=== PATIENT | male | born 1955 | race Caucasian/White ===

== ENCOUNTER 2021-11-13 18:06 | Inpatient (IN) | payer MEDICARE, OTHER ==
[~2021-11-13] VITALS: Ht 170.2 cm; Wt 61.7 kg
--- NOTE | 2021-11-13 18:35 | NUR ---
BIBRA 40 FOR LOW GRADE FEVER 99.7F X1 DAY. VACCINATED. OXYGEN SATURATION IN ROOM AIR 94%. RESPIRATION REGULAR AND UNLABORED. ATTACHED TO THE MONITOR. WILL CONTINUE TO MONITOR THE PATIENT
--- NOTE | 2021-11-13 18:48 | NUR ---
IV LINE IS ESTABLISHED, BLOOD SPECIMEN COLLECTED AND SENT TO THE LAB. THE LINE IS SALINE LOCKED.
--- NOTE | 2021-11-13 18:52 | NUR ---
COVID ANTIGEN SWAB DONE AND SENT TO THE LAB
[2021-11-13] MEDS ORDERED: IV NS 0.9% 1,000 ML BAG IV ONE (19:00)
[2021-11-13] MEDS ORDERED: FAMO40TA7 GT (19:06)
[2021-11-13] MEDS ORDERED: DOCU-141 GT (19:06)
[2021-11-13] MEDS ORDERED: ASCO-352 GT (19:06)
[2021-11-13] MEDS ORDERED: IPRA0.2S9 IH (19:06)
[2021-11-13] MEDS ORDERED: CRAN500T3 GT (19:06)
[2021-11-13] MEDS ORDERED: [UNRECOGNIZED DRUG - CODE] NEB (19:06)
[2021-11-13] MEDS ORDERED: ALBU2.5V38 IH (19:06)
[2021-11-13] MEDS ORDERED: POLY17PO4 GT (19:06)
[2021-11-13] MEDS ORDERED: NUTR250L62 GT (19:06)
[2021-11-13] MEDS ORDERED: ATOR10TA GT (19:06)
[2021-11-13] MEDS ORDERED: CALC1TAB30 GT (19:06)
[2021-11-13] MEDS ORDERED: APIX5TAB GT (19:06)
[2021-11-13] MEDS ORDERED: LEVO100T9 GT (19:06)
[2021-11-13] MEDS ORDERED: OMEP20TA5 GT (19:06)
--- NOTE | 2021-11-13 19:11 | NUR ---
URINE SENT TO LAB
[2021-11-13] MEDS ORDERED: CARB-174 OT (19:16)
[2021-11-13] MEDS ORDERED: NYST15CR TP (19:16)
[2021-11-13] MEDS ORDERED: ONDA4TAB5 GT (19:16)
[2021-11-13] MEDS ORDERED: ACET-868 GT (19:16)
[2021-11-13] MEDS ORDERED: MAGN400O6 GT (19:16)
[2021-11-13] MEDS ORDERED: NA P133E RC (19:16)
[2021-11-13] MEDS ORDERED: GUAI100S11 GT (19:16)
[2021-11-13] MEDS ORDERED: LORA10TA7 GT (19:16)
[2021-11-13] MEDS ORDERED: BISA10SU11 RC (19:16)
[2021-11-13] MEDS ORDERED: TRIA15OI2 TP (19:16)
[2021-11-13] MEDS ORDERED: SUCR1TAB TD (19:16)
[2021-11-13] MEDS ORDERED: POLY15DR40 EACHEYE (19:16)
[2021-11-13 19:19] LABS: CALCIUM, SERUM 8.4 mg/dL (8.5-10.1); CARBON DIOXIDE 28 mmol/L (21-32); CHLORIDE 99 mmol/L (98-107); CREATININE 1.5 mg/dL (0.6-1.3); GLUCOSE 107 mg/dL (74-106); POTASSIUM 3.9 mmol/L (3.5-5.1); SODIUM SERUM 134 mmol/L (136-145); UREA NITROGEN, BLOOD 19 mg/dL (7-18)
[2021-11-13 19:26] LABS: ALANINE AMINOTRANSFERASE 31 U/L (12-78); ALBUMIN 2.8 g/dL (3.4-5.0); ALKALINE PHOSPHATASE 86 U/L (46-116); ASPARTATE AMINOTRANSFERASE 26 U/L (15-37); BILIRUBIN,DIRECT 0.2 mg/dL (0.0-0.2); BILIRUBIN,TOTAL 0.4 mg/dL (0.2-1.0); TOTAL PROTEIN, SERUM 7.2 g/dL (6.4-8.2)
[2021-11-13 19:51] LABS: EOSINOPHILS % (AUTO) 0.7 % (0.0-6.0); HEMATOCRIT 41 % (39-51); LYMPHOCYTES # (AUTO) 0.4 K/uL (0.8-4.8); LYMPHOCYTES % (AUTO) 10.1 % (20.0-44.0); MEAN CORPUSCULAR HGB CONC 34 g/dl (31.0-36.0); MEAN CORPUSCULAR VOLUME 102 fL (80-96); MONOCYTES # (AUTO) 0.7 K/uL (0.1-1.30); MONOCYTES % (AUTO) 17.2 % (2.0-12.0); NEUTROPHILS # (AUTO) 3.1 K/uL (1.8-8.9); PLATELET COUNT (AUTO) 192 K/uL (150-450); RED BLOOD CELL COUNT(AUTO) 4.04 MIL/uL (4.5-6.0); WHITE BLOOD COUNT (AUTO) 4.3 K/uL (4.3-11.0)
--- NOTE | 2021-11-13 20:42 | NUR ---
CALL FROM LAB. RAPID COVID POSITIVE.
[2021-11-13] MEDS ORDERED: CEFTRIAXONE 1GM BAG (ER ONLY) 1 GM/50 ML PIGGYBACK IV ONE (21:00)
[2021-11-13] MEDS ORDERED: AZITHROMYCIN 500 MG in IV D5W 250 ML IV ONE (21:00)
[2021-11-13] MEDS ORDERED: AZITHROMYCIN 500 MG VIAL ONE (21:23)
[2021-11-13] MEDS ORDERED: CEFTRIAXONE 1GM BAG (ER ONLY) 50 ML IV ONE (21:23)
[2021-11-13 23:25] LABS: BILIRUBIN,URINE NEGATIVE (NEGATIVE); COLOR,URINE YELLOW (YELLOW); LEUKOCYTE ESTERASE ,URINE LARGE (NEGATIVE); NITRITE, URINE POSITIVE (NEGATIVE); PROTEIN,URINE NEGATIVE (NEGATIVE); UGLUCOSE NEGATIVE (NEGATIVE); UROBILINOGEN,URINE 0.2 EU/dL (0.2)
[2021-11-13 23:27] LABS: BACTERIA,URINE Many /HPF (None Seen); SQUAMOUS EPITHELIAL CELL,UR Few /HPF (None Seen); WBC,URINE 21-50 /HPF (0-3)
[2021-11-13] MEDS ORDERED: ONDANSETRON HCL/PF 4 MG/2 ML VIAL IVP PRN (23:30)
[2021-11-13] MEDS ORDERED: LEVOFLOXACIN 500 MG /D5W 100ML 500 MG in PREMIX 1 EA IV ONE (23:30)
[2021-11-13] MEDS ORDERED: BISACODYL SUPP (10 MG) 10 MG/SUPP.RECT SUPP.RECT RC PRN (23:30)
[2021-11-13] MEDS: ALBUTEROL FS 2.5 MG/3 ML VIAL.NEB IH SCH (23:30)
[2021-11-13] MEDS ORDERED: IPRATROPIUM NEB FS 0.5 MG/2.5 ML AMPUL.NEB IH SCH (23:30)
[2021-11-13] MEDS ORDERED: Z GUARD REMEDY 4 OZ OINT TP PRN (23:30)
[2021-11-13] MEDS: POLYVINYL ALCOHOL 15 ML BOTTLE EACHEYE SCH (23:30)
[2021-11-13] MEDS ORDERED: ACETAMINOPHEN 325 MG TABLET PO PRN (23:30)
[2021-11-13] MEDS ORDERED: TRIAMCINOLONE OINT 0.1% 15 GM TUBE TP PRN (23:30)
[2021-11-13] MEDS ORDERED: FAMOTIDINE 40 MG TABLET GT SCH (23:30)
[2021-11-13 23:48] LABS: THYROID STIMULATING HORMONE 0.242 uIU/mL (0.358-3.74)
[2021-11-13 23:52] LABS: C-REACTIVE PROTEIN 5.7 mg/dL (0.0-0.9)
[2021-11-13] MEDS ORDERED: LEVOFLOXACIN 500 MG /D5W 100ML 100 ML IV ONE (23:55)
[2021-11-13] MEDS ORDERED: APIXABAN 5 MG TABLET ONE (23:55)
[2021-11-13] MEDS ORDERED: SUCRALFATE 1 G TABLET ONE (23:56)
[2021-11-13] MEDS ORDERED: FAMOTIDINE (20 MG) 20 MG TABLET ONE (23:56)
[2021-11-14] MEDS: SUCRALFATE 1 G TABLET GT SCH ×3 (00:32→17:02)
[2021-11-14] MEDS: APIXABAN 5 MG TABLET GT SCH ×3 (00:32→21:30)
[2021-11-14] MEDS ORDERED: IPRATROPIUM NEB FS 0.5 MG/2.5 ML AMPUL.NEB ONE (00:41)
[2021-11-14] MEDS ORDERED: ALBUTEROL FS 2.5 MG/3 ML VIAL.NEB ONE (00:41)
--- NOTE | 2021-11-14 01:21 | NUR ---
PT TOLERATING R/A AT 95%. GT PATENT AND INTACT. RFA #18G PATENT AND INTACT. PT SLEEPING IN BED. ENDORSED FREDDY TO ANGELITO VIRK.
[2021-11-14 05:09] LABS: BASOPHILS % (AUTO) 0.6 % (0.0-2.0); EOSINOPHILS % (AUTO) 0.2 % (0.0-6.0); HEMATOCRIT 46 % (39-51); HEMOGLOBIN 15.5 g/dL (13.5-17.5); LYMPHOCYTES # (AUTO) 0.6 K/uL (0.8-4.8); LYMPHOCYTES % (AUTO) 9.3 % (20.0-44.0); MEAN CORPUSCULAR HGB CONC 34 g/dl (31.0-36.0); MEAN CORPUSCULAR VOLUME 103 fL (80-96); MONOCYTES # (AUTO) 0.9 K/uL (0.1-1.30); NEUTROPHILS # (AUTO) 4.6 K/uL (1.8-8.9); NEUTROPHILS % (AUTO) 74.9 % (43.0-81.0); PLATELET COUNT (AUTO) 185 K/uL (150-450); RED BLOOD CELL COUNT(AUTO) 4.45 MIL/uL (4.5-6.0); WHITE BLOOD COUNT (AUTO) 6.1 K/uL (4.3-11.0)
[2021-11-14 05:40] LABS: CALCIUM, SERUM 8.8 mg/dL (8.5-10.1); CREATININE 1.4 mg/dL (0.6-1.3); MAGNESIUM 2.4 mg/dL (1.8-2.4); PHOSPHORUS 2.3 mg/dL (2.5-4.9); POTASSIUM 3.8 mmol/L (3.5-5.1)
[2021-11-14] MEDS: ALBUTEROL FS 2.5 MG/3 ML VIAL.NEB IH SCH (07:35)
[2021-11-14] MEDS: LEVOTHYROXINE SODIUM 100 MCG TABLET GT SCH (08:00)
[2021-11-14] MEDS: IV NS 0.9% 1,000 ML IV PRN ×2 (08:00→12:47)
[2021-11-14] MEDS ORDERED: LEVOTHYROXINE SODIUM 100 MCG TABLET ONE (08:02)
--- NOTE | 2021-11-14 08:02 | NUR ---
THE PATIENT IS RECEIVED IN ER BED #8. ATTACHED TO THE MONITOR. RESPIRATION REGULAR AND UNLABORED. WILL CONTINUE TO MONITOR THE PATIENT.
[2021-11-14] MEDS ORDERED: SUCRALFATE 1 G TABLET ONE (08:04)
[2021-11-14] MEDS ORDERED: APIXABAN 5 MG TABLET ONE (08:04)
[2021-11-14] MEDS ORDERED: ASCORBIC ACID 500 MG TABLET ONE (08:04)
[2021-11-14] MEDS ORDERED: DOCUSATE SODIUM LIQ 100 MG/10 ML UDC ONE (08:04)
[2021-11-14] MEDS: ASCORBIC ACID 500 MG TABLET GT SCH (08:48)
[2021-11-14] MEDS: DOCUSATE SODIUM 100 MG CAPSULE PO SCH ×2 (08:48→21:31)
--- NOTE | 2021-11-14 09:02 | NUR ---
RT NOTE Patient is covid positive. Breathing tx (HHN) not given at this time. Per RN, pharmacy will change medication to MDI.
[2021-11-14] MEDS: CALCIUM CARB 250MG /VITAMIN D 1 UDTAB PO SCH (09:11)
[2021-11-14] MEDS: NYSTATIN CREAM 15 GM TUBE TP SCH ×2 (09:11→17:02)
[2021-11-14] MEDS: POLYVINYL ALCOHOL 15 ML BOTTLE EACHEYE SCH ×2 (09:14→21:26)
[2021-11-14] MEDS: IPRATROPIUM BROMIDE 14 GM INHALER (or 12.9 GM) IH SCH ×2 (09:15→15:30)
--- NOTE | 2021-11-14 11:17 | NUR ---
GOT BED 119-1
[2021-11-14] MEDS ORDERED: NEUTRA PHOS 1 POWD.PACKET PO ONE (11:30)
--- NOTE | 2021-11-14 11:31 | NUR ---
REPORT GIVEN TO NURSE PRATT FOR FREDDY
--- NOTE | 2021-11-14 11:52 | NUR ---
THE PATIENT IS TRANSFERED TO ASSIGNED ROOM IN STABLE CONDITON AND PER ACLS
--- NOTE | 2021-11-14 11:55 | NUR ---
RN NOTES; PT ARRIVED FROM ER VIA GURNEY. PT A/OX1, NON VERBAL. FFA#18 NOTED, FLUSHED, WITH NO SIGNS ON INFILTRATION. WILL CONTINUE FULL ASSESSMENT AND MONITOR.
[2021-11-14 12:00] VITALS: BP 121/68
[2021-11-14] MEDS ORDERED: JEVITY 1.2 CAL 1,000 ML BOTTLE GT PRN (15:30)
[2021-11-14] MEDS: ALBUTEROL SULFATE 8 GM HFA.AER.AD IH SCH (15:30)
[2021-11-14 16:00] VITALS: BP 125/75
[2021-11-14] MEDS: POLYETHYLENE GLYCOL 3350 17 GM POWD.PACK GT SCH (17:02)
--- NOTE | 2021-11-14 18:43 | NUR ---
RN CLOSING NOTES; PT IN BED RESTING. PT A/OX1, NON VERBAL. SKIN IS INTACT. PT HAS GTUBE, AWAITING FOR FEEDING. JEVITY 1.2 GOAL IS 60ML/HR. START AT 20ML/HR. RFA#18 FLUSHED, PATENT, AND RUNNING NS@75ML/HR. PT KEPT CLEAN, DRY, AND COMFORTABLE. SAFETY MEASURES RENDERED, BED IN LOWEST POS. LOCKED, SIDE RAILSX2, WITH CALL LIGHT WITHIN REACH. NO SIGNIFICANT CHANGES TO PT HEALTH STATUS ON SHIFT. WILL ENDORSE TO GRAVITY METER OPERATOR RN. PT IN STABLE CONDITION.
--- NOTE | 2021-11-14 19:20 | NUR ---
RN OPENING NOTES RECEIVED PATIENT ON BED AWAKE. PATIENT IS ON ROOM AIR , NO SOB NOTED, NO S/S OF DISTRESS NOTED. PATIENT WITH RIGHT FORE ARM PERIPHERAL LINE #20. WITH GTUBE FEEDING JEVITY 1.2 @ 60 ML/HR, HOB KEPT ELEVATED, INPLACED, INTACT AND INFUSING WELL, NO RESIDUAL NOTED UPON ASPIRATION. ALL SAFETY MEASURE IN PLACE. BED ON LOWEST POSITION, LOCKED BED ALARM ARMED. CALL LIGHT WITHIN REACH. WILL CONTINUE TO MONITOR
[2021-11-14 20:00] VITALS: BP 153/72
[2021-11-14] MEDS: JEVITY 1.2 CAL 1,000 ML BOTTLE GT SCH (20:07)
[2021-11-14] MEDS: FAMOTIDINE (20 MG) 20 MG TABLET GT SCH (21:27)
[2021-11-14] MEDS: LEVOFLOXACIN 250 MG /D5W 50 ML 250 MG in PREMIX 1 EA IV SCH (23:09)
[2021-11-15] VITALS: BP 138/81
[2021-11-15 04:00] VITALS: BP 115/74
[2021-11-15] MEDS: IV NS 0.9% 1,000 ML IV PRN ×2 (06:01→19:22)
--- NOTE | 2021-11-15 07:25 | NUR ---
RN CLOSING NOTES NO SIGNIFICANT CHANGES THROUGH OUT THE SHIFT. PATIENT IS ON ROOM AIR , NO SOB NOTED, NO S/S OF DISTRESS NOTED. PATIENT WITH RIGHT FORE ARM PERIPHERAL LINE #20. WITH GTUBE FEEDING JEVITY 1.2 @ 60 ML/HR, HOB KEPT ELEVATED, INPLACED, INTACT AND INFUSING WELL, NO RESIDUAL NOTED UPON ASPIRATION. ALL DUE MEDS GIVEN ORDERED. ALL SAFETY MEASURE IN PLACE. BED ON LOWEST POSITION, LOCKED BED ALARM ARMED. CALL LIGHT WITHIN REACH. WILL CONTINUE TO MONITOR
[2021-11-15 07:31] LABS: CALCIUM, SERUM 7.9 mg/dL (8.5-10.1); CREATININE 1.2 mg/dL (0.6-1.3); POTASSIUM 3.7 mmol/L (3.5-5.1)
[2021-11-15 08:00] VITALS: BP 133/76
--- NOTE | 2021-11-15 08:00 | NUR ---
RN NOTE RECEIVED PT ASLEEP IN BED, RESPONSIVE TO STIMULI. NO COMPLAINTS OF PAIN AND DISCOMFORT. RFA G18 MED LOCK IN PLACE, WITH IVF NS RUNNING @ 75CC/HR. GT FEEDING JEVITY 1.2 RUNNING @40CC/HR. ASPIRATION PREC FOLLOWED. WILL CONTINUE TO MONITOR.
[2021-11-15 08:13] LABS: BASOPHILS % (AUTO) 1.5 % (0.0-2.0); EOSINOPHILS % (AUTO) 1.1 % (0.0-6.0); HEMATOCRIT 41 % (39-51); HEMOGLOBIN 13.9 g/dL (13.5-17.5); LYMPHOCYTES # (AUTO) 0.5 K/uL (0.8-4.8); LYMPHOCYTES % (AUTO) 26.1 % (20.0-44.0); MEAN CORPUSCULAR HGB CONC 34 g/dl (31.0-36.0); MEAN CORPUSCULAR VOLUME 101 fL (80-96); MONOCYTES # (AUTO) 0.5 K/uL (0.1-1.30); MONOCYTES % (AUTO) 25.3 % (2.0-12.0); NEUTROPHILS # (AUTO) 0.9 K/uL (1.8-8.9); PLATELET COUNT (AUTO) 177 K/uL (150-450); RED BLOOD CELL COUNT(AUTO) 4.05 MIL/uL (4.5-6.0)
[2021-11-15 08:36] LABS: WHITE BLOOD COUNT (AUTO) 1.9 K/uL (4.3-11.0)
[2021-11-15] MEDS ORDERED: CARBAMIDE PEROXIDE OTIC 15 ML BOTTLE OT SCH (09:00)
[2021-11-15] MEDS: LEVOTHYROXINE SODIUM 100 MCG TABLET GT SCH (09:07)
[2021-11-15] MEDS: SUCRALFATE 1 G TABLET GT SCH ×2 (09:07→17:14)
[2021-11-15] MEDS: ASCORBIC ACID 500 MG TABLET GT SCH (09:07)
[2021-11-15] MEDS: CALCIUM CARB 250MG /VITAMIN D 1 UDTAB PO SCH (09:07)
[2021-11-15] MEDS: DOCUSATE SODIUM 100 MG CAPSULE PO SCH ×2 (09:07→21:48)
[2021-11-15] MEDS: ATORVASTATIN 10 MG TABLET GT SCH (09:08)
[2021-11-15] MEDS: APIXABAN 5 MG TABLET GT SCH ×2 (09:11→21:50)
[2021-11-15] MEDS: POLYVINYL ALCOHOL 15 ML BOTTLE EACHEYE SCH ×2 (09:30→22:12)
[2021-11-15 12:00] VITALS: BP 115/79
[2021-11-15] MEDS: NYSTATIN CREAM 15 GM TUBE TP SCH ×2 (12:43→17:13)
[2021-11-15] MEDS: ALBUTEROL SULFATE 8 GM HFA.AER.AD IH SCH ×4 (12:44→22:13)
[2021-11-15] MEDS: IPRATROPIUM BROMIDE 14 GM INHALER (or 12.9 GM) IH SCH ×4 (12:44→22:13)
[2021-11-15] MEDS ORDERED: K PHOS NEUTRAL 250 MG TABLET PO ONE (15:30)
[2021-11-15 16:00] VITALS: BP 125/62
[2021-11-15] MEDS: POLYETHYLENE GLYCOL 3350 17 GM POWD.PACK GT SCH (17:14)
--- NOTE | 2021-11-15 19:10 | NUR ---
RN NOTES RECEIVED REPORT FROM MORNING RN. PATIENT A/O X1 NON VERBAL. NO SIGN OF DISTRESS OR DISCOMFORT AT THIS TIME ON ROOM AIR SATING 95% TOLERATING WELL. WITH GT PATENT CONNECTED TO CONTINUOS FEEDING @ 600 CC/HR TOLERATING WELL. WITH IV ACCESS AT RFA #18 FLUSHES WELL WITH CONTINUOS IVF NS @75CC/HR. PATIENT ON ISOLATION FOR COVID 19 POSITIVE. ALL SAFETY PRECAUTION IN PLACE AT ALL TIMES. HOB ELEVATED, CALL LIGHT WITHIN REACH SIDE RAILS UP FOR SAFETY. BED ON LOWEST POSITION AND LOCKED. WILL CONTINUE TO MONITOR.
--- NOTE | 2021-11-15 19:35 | NUR ---
RN NOTE PT AWAKE RESTING IN BED, RESPONSIVE TO STIMULI. NO COMPLAINTS OF PAIN AND DISCOMFORT. RFA G18 MED LOCK IN PLACE, WITH IVF NS RUNNING @ 75CC/HR. GT FEEDING JEVITY 1.2 RUNNING @60CC/HR. ASPIRATION PREC FOLLOWED. WILL CONTINUE TO MONITOR. ALL DUE MEDICATIONS GIVEN, MORNING CARE DONE.
[2021-11-15 20:00] VITALS: BP 126/62
[2021-11-15] MEDS: FAMOTIDINE (20 MG) 20 MG TABLET GT SCH (21:49)
[2021-11-15] MEDS ORDERED: LEVOFLOXACIN 250 MG /D5W 50 ML 50 ML IV ONE (21:53)
[2021-11-15] MEDS: LEVOFLOXACIN 250 MG /D5W 50 ML 250 MG in PREMIX 1 EA IV SCH (21:55)
[2021-11-16] VITALS: BP 122/70
[2021-11-16 04:00] VITALS: BP 140/85
--- NOTE | 2021-11-16 06:56 | NUR ---
RN NOTES PATIENT REMAINS STABLE NO SIGNIFICANT CHANGES IN HEALTH CONDITION THIS SHIFT. ALL DUE MEDS GIVEN ORDERED. STILL ON CONTINUOS GT FEEDING TOLERATING WELL. ALL SAFETY MEASURES IN PLACE AT ALL TIMES. HOB ELEVATED. CALL LIGHT WITHIN REACH. SIDERAILS UP FOR SAFETY. BED ON LOWEST POSITION AND LOCKED. ENDORSED
[2021-11-16 07:17] LABS: EOSINOPHILS % (AUTO) 1.2 % (0.0-6.0); HEMATOCRIT 41 % (39-51); HEMOGLOBIN 13.6 g/dL (13.5-17.5); LYMPHOCYTES # (AUTO) 0.5 K/uL (0.8-4.8); LYMPHOCYTES % (AUTO) 20.4 % (20.0-44.0); MEAN CORPUSCULAR HGB CONC 34 g/dl (31.0-36.0); MEAN CORPUSCULAR VOLUME 101 fL (80-96); MONOCYTES # (AUTO) 0.4 K/uL (0.1-1.30); MONOCYTES % (AUTO) 16.8 % (2.0-12.0); NEUTROPHILS # (AUTO) 1.4 K/uL (1.8-8.9); NEUTROPHILS % (AUTO) 60.6 % (43.0-81.0); PLATELET COUNT (AUTO) 174 K/uL (150-450); RED BLOOD CELL COUNT(AUTO) 4.03 MIL/uL (4.5-6.0); WHITE BLOOD COUNT (AUTO) 2.2 K/uL (4.3-11.0)
[2021-11-16 07:58] LABS: CALCIUM, SERUM 8.1 mg/dL (8.5-10.1); CREATININE 1.2 mg/dL (0.6-1.3); PHOSPHORUS 1.6 mg/dL (2.5-4.9); POTASSIUM 3.7 mmol/L (3.5-5.1)
[2021-11-16 08:00] VITALS: BP 129/90
[2021-11-16 09:57] LABS: LYMPHOCYTES % (MANUAL) 29 % (16-48); MONOCYTES % (MANUAL) 19 % (0-11.0); NEUTROPHILS % (MANUAL) 52 (42-76)
[2021-11-16] MEDS: LEVOTHYROXINE SODIUM 100 MCG TABLET GT SCH (10:44)
[2021-11-16] MEDS: DOCUSATE SODIUM 100 MG CAPSULE PO SCH ×2 (10:45→21:27)
[2021-11-16] MEDS: SUCRALFATE 1 G TABLET GT SCH ×2 (10:45→16:20)
[2021-11-16] MEDS: ASCORBIC ACID 500 MG TABLET GT SCH (10:45)
[2021-11-16] MEDS: ATORVASTATIN 10 MG TABLET GT SCH (10:45)
[2021-11-16] MEDS: IPRATROPIUM BROMIDE 14 GM INHALER (or 12.9 GM) IH SCH ×3 (10:47→21:48)
[2021-11-16] MEDS: POLYVINYL ALCOHOL 15 ML BOTTLE EACHEYE SCH ×2 (10:47→21:48)
[2021-11-16] MEDS: ALBUTEROL SULFATE 8 GM HFA.AER.AD IH SCH ×3 (10:47→21:49)
[2021-11-16] MEDS: NYSTATIN CREAM 15 GM TUBE TP SCH ×2 (10:47→16:35)
[2021-11-16] MEDS: APIXABAN 5 MG TABLET GT SCH ×2 (10:50→21:28)
[2021-11-16] MEDS: CALCIUM CARB 250MG /VITAMIN D 1 UDTAB PO SCH (10:51)
[2021-11-16] MEDS ORDERED: LORAZEPAM INJ 2 MG/ML VIAL IV PRN (11:00)
[2021-11-16 12:00] VITALS: BP 139/81
[2021-11-16] MEDS: IV NS 0.9% 1,000 ML IV PRN (12:02)
[2021-11-16 13:02] LABS: BAND % (MANUAL) 1 % (0.0-5.0); LYMPHOCYTES % (MANUAL) 22 % (16-48); MONOCYTES % (MANUAL) 15 % (0-11.0); NEUTROPHILS % (MANUAL) 62 (42-76)
[2021-11-16] MEDS ORDERED: NEUTRA PHOS 1 POWD.PACKET GT ONE (15:30)
[2021-11-16 16:00] VITALS: BP 136/78
[2021-11-16] MEDS ORDERED: LEVETIRACETAM (500MG) 1,000 MG in IV NS 0.9% 100 ML IV ONE (16:00)
[2021-11-16] MEDS: DEXAMETHASONE SOD PHOSPHATE 10 MG/ML VIAL IV SCH (16:20)
[2021-11-16] MEDS: JEVITY 1.2 CAL 1,000 ML BOTTLE GT SCH (16:41)
[2021-11-16] MEDS: POLYETHYLENE GLYCOL 3350 17 GM POWD.PACK GT SCH (19:01)
--- NOTE | 2021-11-16 19:10 | NUR ---
RN NOTES RECEIVED REPORT FROM MORNING RN. PATIENT IS A/O X1 NON VERBAL. NOT ON DISTRESS, NO SOB NOTED AT THIS TIME. WITH IV ACCESS AT RFA # 18 PATENT FLUSHES WELL. WITH ONGOING IVF OF PNS @75CC/HR. WITH GT INTACT CONNECTED TO CONTINUOS FEEDING JEVITY 1.2 AT 60ML/HR TOLERATING WELL NO RESIDUAL NOTED. WITH OXYGEN INHALATION AT 4LPM VIA NC TOLERATING WELL SATING 94%. VITAL SIGNS TAKEN AND RECORDED. AFEBRILE. ALL SAFETY MEASURES IN PLACE. HOB ELEVATED. CALL LIGHT WITHIN REACH. BED ON LOWEST POSITION AND LOCKED. SEIZURE PRECAUTION IN PLACE. WILL CONTINUE TO MONITOR.
[2021-11-16 20:00] VITALS: BP 142/87
--- NOTE | 2021-11-16 20:22 | NUR ---
RN NOTES PT RESTING IN BED.ON ROOM AIR , NO SOB NOTED, NO S/S OF DISTRESS NOTED. PATIENT WITH RIGHT FORE ARM PERIPHERAL LINE #20 WITH IVF NS RUNNING AT 75/HR. WITH GTUBE FEEDING JEVITY 1.2 @ 60 ML/HR, HOB KEPT ELEVATED, ASPIRATION PREC FOLLOWED. ALL DUE MEDS GIVEN ORDERED. ALL SAFETY MEASURE IN PLACE. BED ON LOWEST POSITION, LOCKED BED ALARM ARMED. CALL LIGHT WITHIN REACH. WILL CONTINUE TO MONITOR
[2021-11-16] MEDS: LEVETIRACETAM (250 MG) 250 MG TABLET PO SCH (21:26)
[2021-11-16] MEDS: FAMOTIDINE (20 MG) 20 MG TABLET GT SCH (21:27)
[2021-11-16] MEDS: LEVOFLOXACIN 250 MG /D5W 50 ML 250 MG in PREMIX 1 EA IV SCH (21:30)
[2021-11-16] MEDS: MUPIROCIN OINT 2% 22 GM TUBE NS SCH (21:31)
[2021-11-16] MEDS ORDERED: Sodium Phosphate 30 MMOL in IV NS 0.9% 250 ML IV SCH (23:00)
--- NOTE | 2021-11-16 23:55 | NUR ---
RN NOTES RECEIVED NEW ORDER FROM DR. RAI SODIUM PHOSPHATE 30 MMOL VIA IV. PHARMACY INFORMED AND SAID THEY NEED TO MIX THE MEDICATION. BREAD PACKER SARAHI NOTIFIED THAT THE MEDICATION IS NOT AVAILABLE UNTIL PHARMACIST COME IN THE MORNING. SARAHI ORDERED 2 PACKET NEUTRAPHOS NOW INSTEAD.
[2021-11-17] VITALS: BP 110/54
[2021-11-17] MEDS ORDERED: NEUTRA PHOS 1 POWD.PACKET PO ONE (01:30)
[2021-11-17] MEDS ORDERED: NEUTRA PHOS 1 POWD.PACKET GT ONE (02:30)
[2021-11-17 04:00] VITALS: BP 100/57
[2021-11-17] MEDS: IV NS 0.9% 1,000 ML IV PRN (06:01)
--- NOTE | 2021-11-17 06:45 | NUR ---
RN NOTES PATIENT REMAINS STABLE THE WHOLE SHIFT.ALL DUE MEDS GIVEN ORDERED. NO DESATURATION NO SOB, NO SEIZURE NOTED THIS SHIFT. PATIENT STILL ON OXYGEN INHALATION AT 3 LPM SATING 99%. STILL WITH GT ON CONTINUOS FEEDING TOLERATING WELL. ALL SAFETY MEASURES IN PLACE AT ALL TIMES. CALL LIGHT WITHIN REACH. HOB ELEVATED. BED ON LOWEST POSITION AND LOCKED. ALL NEEDS ATTENDED PROMPTLY. ENDORSED
[2021-11-17 08:00] VITALS: BP 115/72
--- NOTE | 2021-11-17 08:00 | NUR ---
RN NOTE PT ASLEEP RESTING IN BED, RESPONSIVE TO STIMULI. NO COMPLAINTS OF PAIN AND DISCOMFORT. RFA G18 MED LOCK IN PLACE FLUSHING WELL. GT FEEDING JEVITY 1.2 RUNNING @60CC/HR. ASPIRATION PREC FOLLOWED. WILL CONTINUE TO MONITOR.
[2021-11-17] MEDS: ASCORBIC ACID 500 MG TABLET GT SCH (08:13)
[2021-11-17] MEDS: DEXAMETHASONE SOD PHOSPHATE 10 MG/ML VIAL IV SCH (08:14)
[2021-11-17] MEDS: DOCUSATE SODIUM 100 MG CAPSULE PO SCH ×2 (08:14→21:24)
[2021-11-17] MEDS: SUCRALFATE 1 G TABLET GT SCH ×2 (08:14→16:19)
[2021-11-17] MEDS: CALCIUM CARB 250MG /VITAMIN D 1 UDTAB PO SCH (08:14)
[2021-11-17] MEDS: LEVETIRACETAM (250 MG) 250 MG TABLET PO SCH ×2 (08:14→21:24)
[2021-11-17] MEDS: APIXABAN 5 MG TABLET GT SCH ×2 (08:15→21:26)
[2021-11-17] MEDS: ALBUTEROL SULFATE 8 GM HFA.AER.AD IH SCH ×3 (08:23→21:36)
[2021-11-17] MEDS: POLYVINYL ALCOHOL 15 ML BOTTLE EACHEYE SCH ×2 (08:24→21:36)
[2021-11-17] MEDS: IPRATROPIUM BROMIDE 14 GM INHALER (or 12.9 GM) IH SCH ×3 (08:24→21:36)
[2021-11-17] MEDS: NYSTATIN CREAM 15 GM TUBE TP SCH ×2 (08:24→16:21)
[2021-11-17] MEDS: MUPIROCIN OINT 2% 22 GM TUBE NS SCH ×2 (08:25→21:37)
[2021-11-17] MEDS: LEVOTHYROXINE SODIUM 100 MCG TABLET GT SCH (08:29)
[2021-11-17 09:36] LABS: BASOPHILS % (AUTO) 0.1 % (0.0-2.0); HEMATOCRIT 37 % (39-51); HEMOGLOBIN 12.2 g/dL (13.5-17.5); LYMPHOCYTES # (AUTO) 0.4 K/uL (0.8-4.8); LYMPHOCYTES % (AUTO) 10.7 % (20.0-44.0); MEAN CORPUSCULAR HGB CONC 34 g/dl (31.0-36.0); MEAN CORPUSCULAR VOLUME 102 fL (80-96); MONOCYTES # (AUTO) 0.3 K/uL (0.1-1.30); MONOCYTES % (AUTO) 8.4 % (2.0-12.0); NEUTROPHILS # (AUTO) 3.3 K/uL (1.8-8.9); NEUTROPHILS % (AUTO) 80.8 % (43.0-81.0); PLATELET COUNT (AUTO) 168 K/uL (150-450); RED BLOOD CELL COUNT(AUTO) 3.57 MIL/uL (4.5-6.0); WHITE BLOOD COUNT (AUTO) 4.1 K/uL (4.3-11.0)
[2021-11-17 10:19] LABS: CALCIUM, SERUM 7.5 mg/dL (8.5-10.1); CREATININE 1.2 mg/dL (0.6-1.3); PHOSPHORUS 3.5 mg/dL (2.5-4.9)
[2021-11-17 12:00] VITALS: BP 120/78
[2021-11-17] MEDS: POLYETHYLENE GLYCOL 3350 17 GM POWD.PACK GT SCH (17:27)
[2021-11-17] MEDS: JEVITY 1.2 CAL 1,000 ML BOTTLE GT SCH (18:20)
--- NOTE | 2021-11-17 18:55 | NUR ---
RN NOTE PT RESTING IN BED, RESPONSIVE TO STIMULI. RFA G18 MED LOCK IN PLACE FLUSHING WELL. GT FEEDING JEVITY 1.2 RUNNING @60CC/HR. ASPIRATION PREC FOLLOWED. WILL CONTINUE TO MONITOR. MRSA ON R NARES, PRECAUTION FOLLOWED. DUE MEDICATIONS GIVEN. MORNING CARE RENDERED.
--- NOTE | 2021-11-17 19:10 | NUR ---
RN NOTES RECEIVED REPORT FROM MORNING RN PATIENT IN BED A/OX1 NON VERBAL. NO SIGNS OF DISTRESS OR SOB AT THIS TIME. ON OXYGEN INHALATION AT 3LPM VIA NC TOLERATING WELL SATING 97%. WITH IV ACCESS AT RFA #18 PATENT FLUSHES WELL. WITH GT INTACT CONNECTED TO CONTINUOS FEEDING OF JEVITY 1.2 @60CC/HR TOLERATING WELL. VITAL SIGNS TAKEN AND RECORDED AFEBRILE. ALL SAFETY MEASURES IN PLACE AT ALL TIMES. HOB ELEVATED. CALL LIGHT WITHIN REACH. BED ON LOWEST POSITION AND LOCKED. SEIZURE PRECAUTION IN PLACE. PATIENT IN COVID +. WILL CONTINUE TO MONITOR.
[2021-11-17] MEDS: FAMOTIDINE (20 MG) 20 MG TABLET GT SCH (21:24)
[2021-11-17] MEDS: LEVOFLOXACIN 250 MG /D5W 50 ML 250 MG in PREMIX 1 EA IV SCH (21:28)
[2021-11-17 22:00] VITALS: BP 123/65
--- NOTE | 2021-11-18 | NUR ---
RN NOTES PATIENT IS PULLING OUT HIS TUBES. SARAHI JOHNSON ORDERED BILATERAL SOFT RESTRAINTS.
[2021-11-18 04:00] VITALS: BP 127/68
--- NOTE | 2021-11-18 06:44 | NUR ---
RN NOTES PATIENT REMAINS STABLE THIS SHIFT NOT IN DISTRESS NO SOB NOTED. ALL DUE MEDS GIVEN ORDERED, STILL ON OXYGEN INHALATION TOLERATING WELL SATING 98%. ALL DUE MEDS GIVEN ORDERED. FREQUENT VISUAL MONITORING RENDERED. KEPT CLEAN AND DRY AT ALL TIMES. ALL SAFETY MEASURES IN PLACE AT ALL TIMES. HOB ELEVATED. CALL LIGHT WITHIN REACH. WILL CONTINUE TO MONITOR. ENDORSED
--- NOTE | 2021-11-18 07:50 | NUR ---
RN OPENING NOTES RECEIVED PATIENT ON BED ASLEEP. PATIENT IS ON 3L NC SATING AT 98% , NO SOB NOTED, NO S/S OF DISTRESS NOTED. PATIENT WITH RIGHT FORE ARM PERIPHERAL LINE #20. WITH GTUBE FEEDING JEVITY 1.2 @ 60 ML/HR, HOB KEPT ELEVATED, INPLACED, INTACT AND INFUSING WELL, NO RESIDUAL NOTED UPON ASPIRATION. ALL SAFETY MEASURE IN PLACE. BED ON LOWEST POSITION, LOCKED BED ALARM ARMED. CALL LIGHT WITHIN REACH. WILL CONTINUE TO MONITOR.
[2021-11-18 08:21] LABS: BASOPHILS % (AUTO) 0.3 % (0.0-2.0); HEMATOCRIT 39 % (39-51); LYMPHOCYTES # (AUTO) 0.7 K/uL (0.8-4.8); LYMPHOCYTES % (AUTO) 10.8 % (20.0-44.0); MEAN CORPUSCULAR HGB CONC 34 g/dl (31.0-36.0); MEAN CORPUSCULAR VOLUME 101 fL (80-96); MONOCYTES # (AUTO) 0.7 K/uL (0.1-1.30); MONOCYTES % (AUTO) 10.3 % (2.0-12.0); NEUTROPHILS % (AUTO) 78.6 % (43.0-81.0); PLATELET COUNT (AUTO) 190 K/uL (150-450); RED BLOOD CELL COUNT(AUTO) 3.82 MIL/uL (4.5-6.0); WHITE BLOOD COUNT (AUTO) 6.4 K/uL (4.3-11.0)
[2021-11-18] MEDS: LEVETIRACETAM (250 MG) 250 MG TABLET PO SCH (09:11)
[2021-11-18] MEDS: DEXAMETHASONE SOD PHOSPHATE 10 MG/ML VIAL IV SCH (09:11)
[2021-11-18] MEDS: LEVOTHYROXINE SODIUM 100 MCG TABLET GT SCH (09:12)
[2021-11-18] MEDS: CALCIUM CARB 250MG /VITAMIN D 1 UDTAB PO SCH (09:12)
[2021-11-18] MEDS: ATORVASTATIN 10 MG TABLET GT SCH (09:12)
[2021-11-18] MEDS: DOCUSATE SODIUM 100 MG CAPSULE PO SCH (09:12)
[2021-11-18] MEDS: ASCORBIC ACID 500 MG TABLET GT SCH (09:12)
[2021-11-18] MEDS: APIXABAN 5 MG TABLET GT SCH (09:13)
[2021-11-18] MEDS: NYSTATIN CREAM 15 GM TUBE TP SCH ×2 (09:14→17:38)
[2021-11-18] MEDS: MUPIROCIN OINT 2% 22 GM TUBE NS SCH (09:15)
[2021-11-18 09:16] LABS: CALCIUM, SERUM 8.6 mg/dL (8.5-10.1); CREATININE 1.1 mg/dL (0.6-1.3); POTASSIUM 3.4 mmol/L (3.5-5.1)
[2021-11-18] MEDS: POLYVINYL ALCOHOL 15 ML BOTTLE EACHEYE SCH (09:16)
[2021-11-18] MEDS: SUCRALFATE 1 G TABLET GT SCH ×2 (09:17→17:37)
[2021-11-18 12:00] VITALS: BP 127/68
[2021-11-18] MEDS ORDERED: DEXA10VI2 GT (15:36)
[2021-11-18] MEDS ORDERED: MUPI22OI7 NS (15:36)
[2021-11-18] MEDS ORDERED: LEVO500P10 IV (15:36)
[2021-11-18] MEDS ORDERED: LEVE250T2 PO (15:36)
[2021-11-18] MEDS ORDERED: ALBU18HF2 IH (15:36)
[2021-11-18] MEDS ORDERED: FAMO20TA80 GT (15:36)
[2021-11-18] MEDS ORDERED: LEVO500P10 PO (15:59)
[2021-11-18] MEDS: POLYETHYLENE GLYCOL 3350 17 GM POWD.PACK GT SCH (17:37)
--- NOTE | 2021-11-18 19:33 | NUR ---
DC NOTES PT DC'S TO SNF IN STABLE CONDITION. DC INSTRUCTIONS GIVEN AND EXPLAINED TO PT. VERBALIZED UNDERSTANDING. ALL PAPERWORK SIGNED AND ALL BELONGINGS SENT. IV ACCESS REMOVED. PT LEFT UNIT IN STABLE CONDITION VIA GURNEY. PT ENDORSED TO AMBULANCE CREW ACCORDINGLY.
== END 2021-11-18 19:08 | DRG 871 ==
LOC: ER 18:24 → TRANSITION 21:36 → TELE1 11-14 11:40 → MEDSG1 11-17 10:37
PROVIDERS: ADMIT Nurse Practitioner Acute Care; ATTEND Nurse Practitioner Acute Care
DX: A41.89 Other specified sepsis (principal); U07.1 COVID-19; J12.82 Pneumonia due to coronavirus disease 2019; R53.2 Functional quadriplegia; N17.0 Acute kidney failure with tubular necrosis; J15.9 Unspecified bacterial pneumonia; G93.41 Metabolic encephalopathy; E44.0 Moderate protein-calorie malnutrition; E87.1 Hypo-osmolality and hyponatremia; N39.0 Urinary tract infection, site not specified; J98.11 Atelectasis; Q90.9 Down syndrome, unspecified; D72.819 Decreased white blood cell count, unspecified; E03.9 Hypothyroidism, unspecified; E83.39 Other disorders of phosphorus metabolism; E86.0 Dehydration; E86.1 Hypovolemia; F32.A Depression, unspecified; R13.10 Dysphagia, unspecified; Z79.01 Long term (current) use of anticoagulants; Z86.718 Personal history of other venous thrombosis and embolism; Z93.1 Gastrostomy status; K21.9 Gastro-esophageal reflux disease without esophagitis; G40.909 Epilepsy, unspecified, not intractable, without status epilepticus; E78.5 Hyperlipidemia, unspecified; H91.90 Unspecified hearing loss, unspecified ear; H54.62 Unqualified visual loss, left eye, normal vision right eye; Z86.73 Personal history of transient ischemic attack (TIA), and cerebral infarction without residual deficits; E88.09 Other disorders of plasma-protein metabolism, not elsewhere classified; B96.1 Klebsiella pneumoniae [K. pneumoniae] as the cause of diseases classified elsewhere; Z22.322 Carrier or suspected carrier of Methicillin resistant Staphylococcus aureus
CPT/HCPCS: 36415; 71045-TC; 80048-TC; 80061-TC; 80076-TC; 81001; 83605-TC; 83735-TC; 84100-TC; 84443-TC; 84484-TC; 85025-TC; 85378-TC; 85730-TC; 86140-TC; 87040-TC; 87081-TC; 87086-TC; 87186-TC; A4216; A9563; C9803; G0378; J0456; J0696; J1100; J1953; J1956; J2060; J2405; J7030; J7050; J7060; J7120